=== PATIENT | female | born 1960 | race Caucasian/White ===

== ENCOUNTER 2024-10-18 14:48 | Outpatient (CLI) | payer OTHER, SELFPAY ==
--- NOTE | ~2024-10-18 | MM_ITS ---
EXAMINATION: MM screening samm BI w khanh HISTORY: Screening mammogram, family history of breast cancer in her mother. TECHNIQUE: Craniocaudal and mediolateral oblique 3-D tomosynthesis images were obtained and synthetic 2-D images were generated. CAD analysis was submitted and interpreted. COMPARISON: No prior mammogram is available for comparison at this institution. BREAST PARENCHYMAL COMPOSITION:Not Dense. There are scattered areas of fibroglandular density. FINDINGS: No suspicious mass, calcification, or architectural distortion are identified in either breast to suggest malignancy. There has been no suspicious interval change. IMPRESSION: No mammographic evidence of malignancy. Recommend routine screening mammography in one year. BI-RADS Category 1: Negative Reviewed, dictated and finalized at location .
--- OUTSIDE RECORDS SUMMARY | 2024-10-18 07:39 | XMS_ITS | Encounter Summary ---
Author Organization [facility] Address [address] [place] [address] Care Team Providers Care Branding Machine Tender Name Role Phone Bryon Yuan MD Primary Care Provider [phone] Chavez Ayala MD Unavailable [phone] Reason for Visit * Auth/Cert (Routine) Specialty Diagnoses / Procedures Referred By Contac t Referred To Contact Diagnoses Encounter for screening for malignant neoplasm of colon Encounter for screening for malignant neoplasm of colon [Z12.11] Procedures TX COLONOSCOPY W/BIOPSY SINGLE/MULTIPLE COLONOSCOPY Referral ID Status Reason Start Date Expiration Date Visits Re quested Visits Authorized [id number] 1 1 Encounter Details Date Type Department Care Team (Late st Contact Info) Description 10/18/2024 7:39 AM CDT - 10/18/2024 11:06 AM CDT Hospital Encounter [facility] [address] [place] [address] Dami Low MD [id number] [place] [id number] Encounter for screening for malignant neoplasm of colon Discharge Disposition: Discharge to home or self care Social History Tobacco Use Types Packs/Day Years Used Date Smoking Tobacco: Never Smokeless Tobacco: Never Comments:No street drugs or mj. Alcohol Use Standard Drinks/Week Comments Yes 3 (1 standard drink = 0.6 oz pur e alcohol) Humiliation, Afraid, Rape, and Kick questionnair e Answer Date Recorded Within the last year, have y ou been afraid of your partner or ex-partner? No 04/24/2024 Within the last year, have y ou been humiliated or emotionally abused in other ways by your partner or ex-partner? No Within the last year, have y ou been kicked, hit, slapped, or otherwise physically hurt by your partner or ex-partner? No 04/24/2024 Within the last year, have y ou been raped or forced to have any kind of sexual activity by your partner or ex-partner? No 04/24/2024 PHQ-2 Answer Date Recorded PHQ-2 Total Score (If total score is 3 or more points, staff should administer the PHQ-9) 0 06/08/2024 AUDIT-C Answer Date Recorded Q1: How often do you have a drink containing alc ohol? 2-4 times a month 10/18/2024 Q2: How many drinks containi ng alcohol do you have on a typical day when you are drinking? 5 or 6 10/18/2024 Q3: How often do you have si x or more drinks on one occasion? Weekly 10/18/2024 Personal Safety Answer Date Recorded Have you ever been in or are you currently in a harmful physical or emotional relationship or is someone making you feel afraid or unsafe? 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 Not on file Not on file documented as of this encounter Last Filed Vital Signs Vital Sign Reading Time Taken Comments Blood Pressure 142/85 10/18/2024 10:44 AM CDT Pulse 63 10/18/2024 10:44 AM CDT Temperature 36.6 C (97.9 F) 10/18/2024 10:35 AM CDT Respiratory Rate 22 10/18/2024 10:44 AM CDT Oxygen Saturation 100% 10/18/2024 10:44 AM CDT Inhaled Oxygen Concentration - - Weight 74.8 kg (165 lb) 10/18/2024 8:10 AM CDT Height 170.2 cm (5' 7) 10/18/2024 8:10 AM CDT Body Mass Index 25.84 10/18/2024 8:10 AM CDT documented in this encounter Functional Status * AUDIT-C Score Answer Date of Assessment Author 7 10/18/2024 7:59 AM Esha Kaur RN * Question Answer Date of Assessment Author Q1: How often do you have a drink containing alcohol? 2-4 times a month 10/18/2024 7:59 AM Esha Kaur, REUBEN Q2: How many drinks containing alcohol do you have on a typical day when you are drinking? 5 or 6 10/18/2024 7:59 AM Esha Kaur RN Q3: How often do you have six or more drinks on one occasion? Weekly 10/18/2024 7:59 AM Esha Kaur RN documented as of this encounter Medications at Time of Discharge fluticasone propionate (FLONASE) 50 mcg/actuation nasal spray Administer 2 sprays into affected nostril(s) daily 07/20/2014 loratadine (CLARITIN) 10 mg tablet Take 1 tablet (10 mg total) by mouth daily polyethylene glycol (MIRALAX) 17 gram/dose bulk powderIndication s:Bowel Evacuation Take 17 g by mouth daily Took entire container for colonoscopy documented as of this encounter Discharge Disposition Disposition Code Departure Means Destination Comment s Discharge to home or self care documented in this encounter H&P Notes * Dami Low MD - 10/18/2024 9:44 AM CDT I have reviewed the H&P, examined the patient, and endorse the findings as written. Plan of Care : Based on the above findings, I consider Cara Martinez to be an acceptable risk for :Procedure(s): COLONOSCOPY Source Note - Dami Low MD - 10/13/2024 9:20 AM CDT Gastroenterology History and Physical SUBJECTIVE: Patient is a 64 y.o. female for Colonoscopy INDICATIONS: screening for colon cancer Past Medical History: Diagnosis Date Allergic rhinitis Medications Prior to Admission Medication Sig Dispense Refill Last Dose/Taking fluticasone propionate (FLONASE) 50 mcg/actuation nasal spray Administer 2 sprays into affected nostril(s) daily loratadine (CLARITIN) 10 mg tablet Take 1 tablet (10 mg total) by mouth daily polyethylene glycol (MIRALAX) 17 gram/dose bulk powder Take 17 g by mouth daily Took entire container for colonoscopy No Known Allergies Review of Systems: Respiratory: negative Cardiovascular: negative Gastrointestinal: negative OBJECTIVE: Vitals: 10/13/24 0855 BP: 139/100 Pulse: 93 Resp: 16 Temp: 36.6 ??C (97.8 ??F) SpO2: 100% General Appearance: Alert, cooperative, no distress, appears stated age, well developed, well nourished Lungs: Clear to auscultation bilaterally, respirations unlabored Cardiovascular: Regular rate and rhythm, S1 and S2 normal, no murmur, rub or gallop, no edema, pulses 2+ and symmetric to all extremeties Abdomen: Soft, non-tender, bowel sounds active all four quadrants, no masses, no organomegaly, non-distended Neurologic: Alert & oriented x 3 The procedure risks including, but not limited to perforation infection bleeding and anesthetic complications were discussed and the patient verbalized understanding and agreed to proceed. documented in this encounter Procedure Notes * Dami Low MD - 10/18/2024 9:39 AM CDTAssociated Order(s): COLONOSCOPY [facility] Patient Name: Cara Martinez Procedure Date: 10/18/2024 9:39 AM Date of : 1960 Admit Type: Outpatient Age: 64 Gender: Female Note Status: Finalized Attending MD: Dami Low M.D., Procedure Date: 10/18/2024 Procedure: Colonoscopy Indications: Screening for colorectal malignant neoplasm, Last colonoscopy: September 2024 Providers: Dami Low M.D., Urban Martell TRAILER DRIVER (Anesthesia Staff), Cinthia Nguyen, RN, Omid Hyman, Negative Spotter Referring MD: Bryon Yuan M.D. Medicines: Monitored Anesthesia Care Complications: No immediate complications. Estimated Blood Loss: Estimated blood loss was minimal. Procedure: Pre-Anesthesia Assessment: - Prior to the procedure, a History and Physical was performed, and patient medications and allergies were reviewed. The patient is competent. The risks and benefits of the procedure and the sedation options and risks were discussed with the patient. All questions were answered and informed consent was obtained. Patient identification and proposed procedure were verified by the physician, the nurse and the electromechanisms design drafter in the procedure room. Mental Status Examination: alert and oriented. Airway Examination: normal oropharyngeal airway and neck mobility. Respiratory Examination: clear to auscultation. CV Examination: normal. Prophylactic Antibiotics: The patient does not require prophylactic antibiotics. Prior Anticoagulants: The patient has taken no anticoagulant or antiplatelet agents. ASA Grade Assessment: II - A patient with mild systemic disease. After reviewing the risks and benefits, the patient was deemed in satisfactory condition to undergo the procedure. The anesthesia plan was to use monitored anesthesia care (MAC). Immediately prior to administration of medications, the patient was re-assessed for adequacy to receive sedatives. The heart rate, respiratory rate, oxygen saturations, blood pressure, adequacy of pulmonary ventilation, and response to care were monitored throughout the procedure. The physical status of the patient was re-assessed after the procedure. - The risks and benefits of the procedure and the sedation options and risks were discussed with the patient. All questions were answered and informed consent was obtained. After I obtained informed consent, the scope was passed under direct vision. Throughout the procedure, the patient's blood pressure, pulse, and oxygen saturations were monitored continuously. The scope was passed under direct vision. The Colonoscope was introduced through the anus and advanced to the the cecum, identified by appendiceal orifice and ileocecal valve. The colonoscopy was performed without difficulty. The patient tolerated the procedure well. The quality of the bowel preparation was adequate. The bowel preparation used was GoLYTELY and bisacodyl tablets via extended prep with split dose instruction. Findings: Multiple small-mouthed diverticula were found in the left colon. Diffuse mild inflammation characterized by altered vascularity, congestion (edema) and granularity was found in the descending colon, in the transverse colon, in the ascending colon and in the cecum. Biopsies were taken with a cold forceps for histology. Estimated blood loss was minimal. Two hyperplastic-appearing polyps were found in the rectum. The polyps were 1 mm in size. These polyps were removed with a cold biopsy forceps. Resection and retrieval were complete. Estimated blood loss was minimal. The exam was otherwise without abnormality on direct and retroflexion views. Impression: - Diverticulosis in the left colon. - Diffuse mild inflammation was found in the descending colon, in the transverse colon, in the ascending colon and in the cecum secondary to colitis. Biopsied. - Two 1 mm polyps in the rectum, removed with a cold biopsy forceps. Resected and retrieved. - The examination was otherwise normal on direct and retroflexion views. Recommendation: - Await pathology results. - Repeat colonoscopy in 5-10 years for surveillance based on pathology results. Procedure Code(s): --- Professional --- 60025, Colonoscopy, flexible; with biopsy, single or multiple Diagnosis Code(s): --- Professional --- Z12.11, Encounter for screening for malignant neoplasm of colon K52.9, Noninfective gastroenteritis and colitis, unspecified D12.8, Benign neoplasm of rectum K57.30, Diverticulosis of large intestine without perforation or abscess without bleeding CPT copyright 2022 [employer]. All rights reserved. The codes documented in this report are preliminary and upon data coder operator review may be revised to meet current compliance requirements. Electronically signed by Dami Low M.D. Dami Low M.D. 10/18/2024 10:26:08 AM Number of Addenda: 0 Note Initiated On: 10/18/2024 9:39 AM documented in this encounter Plan of Treatment Pending Results Name Type Priority Associated Diagnoses Date /Time Surgical pathology Pathology and Cytology Routine Encounter for screening for malignant neoplasm of colon 10/18/2024 10:49 AM CDT Scheduled Orders Name Type Priority Associated Diagnoses Order Schedule Surgical pathology Pathology and Cytology Timed Encounter for screening for malignant neoplasm of colon Release Upon Ordering for 1 Occurrences starting 10/18/2024 documented as of this encounter Procedures Procedure Name Priority Date/Time Associated Diagnosis Comments COLONOSCOPY 10/18/2024 9:39 AM CDT documented in this encounter Results * Colonoscopy (10/18/2024 9:39 AM CDT) Anatomical Region Laterality Modality Other Narrative Procedure Note Dami Low MD - 10/18/2024 9:39 AM CDT [facility] Endoscopy [facility] Patient Name: Cara Martinez Procedure Date: 10/18/2024 9:39 AM Date of : 1960 Admit Type: Outpatient Age: 64 Gender: Female Note Status: Finalized Attending MD: Dami Low M.D., Procedure Date: 10/18/2024 Procedure: Colonoscopy Indications: Screening for colorectal malignant neoplasm, Last colonoscopy: September 2024 Providers: Dami Low M.D., Urban Martell,TRAILER DRIVER (Anesthesia Staff), Cinthia Nguyen, RN, Omid Hyman, Negative Spotter Referring MD: Bryon Yuan M.D. Medicines: Monitored Anesthesia Care Complications: No immediate complications. Estimated Blood Loss: Estimated blood loss was minimal. Procedure: Pre-Anesthesia Assessment: - Prior to the procedure, a History and Physicalwas performed, and patient medications and allergieswere reviewed. The patient is competent. The risks and benefits of the procedure and the sedation optionsand risks were discussed with the patient. Allquestions were answered and informed consent was obtained. Patient identification and proposed procedure were verified by the physician, the nurse and the electromechanisms design drafter in the procedure room. Mental Status Examination: alert and oriented. AirwayExamination: normal oropharyngeal airway and neck mobility. Respiratory Examination: clear to auscultation. CV Examination: normal. Prophylactic Antibiotics: The patient does not require prophylactic antibiotics. Prior Anticoagulants: The patient has taken no anticoagulant or antiplatelet agents. ASA Grade Assessment: II - A patient with mild systemicdisease. After reviewing the risks and benefits, the patient was deemed in satisfactory condition to undergo the procedure. The anesthesia plan was to use monitored anesthesia care (MAC). Immediately prior to administration of medications, the patient was re-assessed for adequacy to receive sedatives. The heart rate, respiratory rate, oxygen saturations, blood pressure, adequacy of pulmonary ventilation,and response to care were monitored throughout the procedure. The physical status of the patient was re-assessed after the procedure. - The risks and benefits of the procedure and the sedation options and risks were discussed with the patient. All questions were answered and informed consent was obtained. After I obtained informed consent, the scope was passed under direct vision. Throughout theprocedure, the patient's blood pressure, pulse, and oxygen saturations were monitored continuously. The scopewas passed under direct vision. The Colonoscope was introduced through the anus and advanced to the the cecum, identified by appendiceal orifice andileocecal valve. The colonoscopy was performed without difficulty. The patient tolerated the procedurewell. The quality of the bowel preparation was adequate.The bowel preparation used was GoLYTELY and bisacodyl tablets via extended prep with split doseinstruction. Findings: Multiple small-mouthed diverticula were found in the left colon. Diffuse mild inflammation characterized by altered vascularity, congestion (edema) and granularity was found in the descending colon,in the transverse colon, in the ascending colon and in the cecum.Biopsies were taken with a cold forceps for histology. Estimated blood losswas minimal. Two hyperplastic-appearing polyps were found in the rectum. Thepolyps were 1 mm in size. These polyps were removed with a cold biopsyforceps. Resection and retrieval were complete. Estimated blood loss wasminimal. The exam was otherwise without abnormality on direct and retroflexion views. Impression: - Diverticulosis in the left colon. - Diffuse mild inflammation was found in the descending colon, in the transverse colon, in the ascending colon and in the cecum secondary tocolitis. Biopsied. - Two 1 mm polyps in the rectum, removed with acold biopsy forceps. Resected and retrieved. - The examination was otherwise normal on directand retroflexion views. Recommendation: - Await pathology results. - Repeat colonoscopy in 5-10 years for surveillance based on pathology results. Procedure Code(s): --- Professional --- 46722, Colonoscopy, flexible; with biopsy, singleor multiple Diagnosis Code(s): --- Professional --- Z12.11, Encounter for screening for malignantneoplasm of colon K52.9, Noninfective gastroenteritis and colitis, unspecified D12.8, Benign neoplasm of rectum K57.30, Diverticulosis of large intestine without perforation or abscess without bleeding CPT copyright 2022 [employer]. All rights reserved. The codes documented in this report are preliminary and upon data coder operator reviewmay be revised to meet current compliance requirements. Electronically signed by Dami Low M.D. Dami Low M.D. 10/18/2024 10:26:08 AM Number of Addenda: 0 Note Initiated On: 10/18/2024 9:39 AM Dami Low MD ENDOSCOPY PROCEDURES Fi nal Result documented in this encounter Visit Diagnoses Diagnosis Encounter for screening for malignant neoplasm of colon- Primary Colitis Other and unspecified noninfectious gastroenteritis and colitis documented in this encounter Admitting Diagnoses Diagnosis Encounter for screening for malignant neoplasm of colon documented in this encounter Administered Medications Inactive Administered Medications - up to 3 most recent administrations Medication Order MAR Action Action Date Dose Rate Site sodium chloride 0.9% flush 0.5-20 mL 0.5-20 mL, intra-catheter, Every 8 hours scheduled (alternate), First dose on Wed10/18/24 at 0830, Pre-Procedure (GI), Flush volume based on line type and size. sodium chloride 0.9% flush 0.5-20 mL 0.5-20 mL, intra-catheter, As needed, line care, Starting on Wed10/18/24 at 0754, Pre-Procedure (GI), Flush volume based on line type and size. Flush before and after each use. sodium chloride 0.9% infusion 30 mL/hr, intravenous, Continuous, Starting on Wed10/18/24 at 0830, Pre-Procedure (GI) documented in this encounter Discontinued Medications Medication Sig Discontinue Reason Start Date End Da te polyethylene glycol (GoLYTELY) 236-22.74-6.74 -5.86 gram solutionIndications:[facility] [place] [facility] Evac[facility] Take as directed Stop Taking at Discharge 10/13/2024 10/18/2024 bisacodyl EC (DULCOLAX EC) 5 mg EC tablet Take as directed Stop Taking at Discharge 10/13/2024 10/18/2024 documented as of this encounter Active and Recently Administered Medications Times are shown in CDT. Scheduled Medication Order 10/16/2024 10/17/2024 10/18/2024 sodium chloride 0.9% flush 0.5-20 mL 0.5-20 mL, intra-catheter, Every 8 hours scheduled (alternate), First dose on Wed10/18/24 at 0830, Pre-Procedure (GI), Flush volume based on line type and size. 0830 (Due) Continuous Medication Order 10/16/2024 10/17/2024 10/18/2024 sodium chloride 0.9% infusion 30 mL/hr, intravenous, Continuous, Starting on Wed10/18/24 at 0830, Pre-Procedure (GI) 0830 (Due) PRN Medication Order 10/16/2024 10/17/2024 10/18/2024 sodium chloride 0.9% flush 0.5-20 mL 0.5-20 mL, intra-catheter, As needed, line care, Starting on Wed10/18/24 at 0754, Pre-Procedure (GI), Flush volume based on line type and size. Flush before and after each use. documented in this encounter Orders Medications Ordered That Ricky ht Not Have Been Administered Count Last Ordered Date First Ordered Date sodium chloride 0.9% flush 0.5-20 mL 2 09/30 sodium chloride 0.9% infusion 1 10/18/2024 Discharge Count Last Ordered Date First Orde red Date DISCHARGE PATIENT 1 10/18/2024 documented in this encounter Care Teams Branding Machine Tender Relationship Specialty Start Date End Date Bryon Yuan MD [address] [place] [address] PCP - General Family Medicine 05/06/22 Chavez Ayala MD [address] [place] [address] Referring Physician Obstetrics and Gynecology 05/06/22 documented as of this encounter
--- OUTSIDE RECORDS SUMMARY | 2024-10-18 09:30 | XMS_ITS | Encounter Summary ---
Author Organization [facility] Healthcare Address [address] [place] [address] Care Team Providers Care Brim Cutter Name Role Phone Bryon Yuan MD Primary Care Provider [phone] Chavez Ayala MD Unavailable [phone] Reason for Visit * Auth/Cert (Routine) Specialty Diagnoses / Procedures Referred By Contac t Referred To Contact Diagnoses Encounter for screening for malignant neoplasm of colon Encounter for screening for malignant neoplasm of colon [Z12.11] Procedures IA COLONOSCOPY W/BIOPSY SINGLE/MULTIPLE COLONOSCOPY Referral ID Status Reason Start Date Expiration Date Visits Re quested Visits Authorized [id number] 1 1 Encounter Details Date Type Department Care Team (Late st Contact Info) Description 10/18/2024 9:30 AM CDT - 10/18/2024 10:[address] [facility] GI Lab [address] [place] [address] D[place] [id number] [place] [id number] COLON BIOPSY Social History Tobacco Use Types Packs/Day Years [...] Sign Reading Time Taken Comments Blood Pressure 142/99 10/18/2024 8:10 AM CDT Pulse 75 10/18/2024 8:10 AM CDT Temperature 36.6 C (97.9 F) 10/18/2024 8:10 AM CDT Respiratory Rate 17 10/18/2024 8:10 AM CDT Oxygen Saturation 99% 10/18/2024 8:10 AM CDT Inhaled Oxygen Concentration - - [...] times a month 10/18/2024 7:59 AM Esha Kaur RN Q2: How many drinks containing alcohol do [...] - 10/18/2024 9:39 AM CDTAssociated Order(s): COLONOSCOPY [facility] Endoscopy Lab Patient Name: Cara Martinez Procedure Date: 10/18/2024 9:39 AM Date of : 1960 Admit Type: Outpatient Age: 64 Gender: Female Note Status: Finalized Attending MD: Dami Low M.D., Procedure Date: 10/18/2024 Procedure: Colonoscopy Indications: Screening for colorectal malignant neoplasm, Last colonoscopy: September 2024 Providers: Dami Low M.D., Urban Martell, MOLDER WAX BALL (Anesthesia Staff), Cinthia Nguyen, RN, Omid Hyman, Forest Patrolman Referring MD: Bryon Yuan M.D. Medicines: Monitored [...] by the physician, the nurse and the perinatal social worker in the procedure room. Mental Status Examination: [...] pathology results. Procedure Code(s): --- Professional --- 68333, Colonoscopy, flexible; with biopsy, single or multiple Diagnosis Code(s): --- Professional --- Z12.11, Encounter for screening for malignant neoplasm of colon K52.9, Noninfective gastroenteritis and colitis, unspecified D12.8, Benign neoplasm of rectum K57.30, Diverticulosis of large intestine without perforation or abscess without bleeding CPT copyright 2022 [employer]. All rights reserved. The codes documented in this report are preliminary and upon forming process worker review may be revised to meet current [...] Low MD - 10/18/2024 9:39 AM CDT [facility] Endoscopy Lab Patient Name: Cara Martinez Procedure Date: 10/18/2024 9:39 AM Date of : 1960 Admit Type: Outpatient Age: 64 Gender: Female Note Status: Finalized Attending MD: Dami Low M.D., Procedure Date: 10/18/2024 Procedure: Colonoscopy Indications: Screening for colorectal malignant neoplasm, Last colonoscopy: September 2024 Providers: Dami Low M.D., Urban Martell,MOLDER WAX BALL (Anesthesia Staff), Cinthia Nguyen, RN, Omid Hyman, Forest Patrolman Referring MD: Bryon Yuan M.D. Medicines: Monitored [...] by the physician, the nurse and the perinatal social worker in the procedure room. Mental Status Examination: [...] pathology results. Procedure Code(s): --- Professional --- 41919, Colonoscopy, flexible; with biopsy, singleor multiple Diagnosis Code(s): --- Professional --- Z12.11, Encounter for screening for malignantneoplasm of colon K52.9, Noninfective gastroenteritis and colitis, unspecified D12.8, Benign neoplasm of rectum K57.30, Diverticulosis of large intestine without perforation or abscess without bleeding CPT copyright 2022 [employer]. All rights reserved. The codes documented in this report are preliminary and upon forming process worker reviewmay be revised to meet current compliance requirements. Electronically signed by Dami Low M.D. Dami Low M.D. 10/18/2024 10:26:08 AM Number of Addenda: 0 Note Initiated On: 10/18/2024 9:39 AM Dami Low MD ENDOSCOPY PROCEDURES Fi nal Result documented in this encounter Visit Diagnoses Diagnosis Encounter for screening for malignant neoplasm of colon- Primary Encounter for screening for malignant neoplasm of colon documented in this encounter Admitting Diagnoses Diagnosis [...] te polyethylene glycol (GoLYTELY) 236-22.74-6.74 -5.86 gram solutionIndications:[place] Evacuation Take as directed Stop Taking [...] 10/18/2024 documented in this encounter Care Teams Brim Cutter Relationship Specialty Start Date End Date Bryon Yuan MD [address] [place] [address] PCP - General Family Medicine 05/06/22 Chavez Ayala MD [address] [place] [address] Referring Physician Obstetrics and Gynecology 05/06/22 documented as of this encounter
--- OUTSIDE RECORDS SUMMARY | 2024-10-18 09:43 | XMS_ITS | Encounter Summary ---
Author Organization [facility] Address [address] [place] [address] Care Team Providers Care Wet Trimmer Name Role Phone Bryon Yuan MD Primary Care Provider [phone] Chavez Ayala MD Unavailable [phone] Reason for Visit * Auth/Cert (Routine) Specialty Diagnoses / Procedures Referred By Contac t Referred To Contact Diagnoses Encounter for screening for malignant neoplasm of colon Encounter for screening for malignant neoplasm of colon [Z12.11] Procedures MD COLONOSCOPY W/BIOPSY SINGLE/MULTIPLE COLONOSCOPY Referral ID Status Reason Start Date Expiration Date Visits Re quested Visits Authorized [id number] 1 1 Encounter Details Date Type Department Care Team (Late st Contact Info) Description 10/18/2024 9:43 AM CDT Anesthesia Event [facility] GI Lab [address] [place] [address] Kristian Robertson [place] [id number] [place], [place] [id number] Anesthesia Record Procedure Summary Procedure Name Responsible Anesthesiologist Anesthesia Start Time Anesthesia Stop Time COLON BIOPSY (Colon) Kristian Robertson MD 10/18/24 0943 10/18/24 1013 Events Date Time Event Comment 10/18/2024 0924 0940 In Room 0943 An Start 0943 An Start Data 0943 Start Supplemental O2 0946 An Induction The patient was reevaluated immediately before moderate or deep sedation use and before anesthesia induction. 0948 Anesthesia Ready 1011 Proc Fin 1012 Handoff to RN I completed my handoff to the receiving nurse during which we: 1. Patient identified 2. Responsible provider identified 3. Pertinent medical history reviewed 4. Procedure type and surgical course discussed 5. Intraoperative anesthetic management and any significant issues discussed 6. Expectations and concerns for postop period discussed 7. Questions solicited from receiving nurse 8. Patient disposition at the time of handoff: PACU 1013 An Stop 1014 Out of Room Meds Name Total propofol 220 mg lidocaine 2 % 50 mg * Agents Name O2 * Blood No blood administrations on file. Lines, Drains, and Airways Type Details Placement Removal Peripheral IV Placement Date: 09/30 ; Placement Time: 812; Catheter Size: 22 G; Orientation: Posterior, Right; Location: Hand; Site Prep: Chlorhexidine; Insertion Attempts: 1; Patient Tolerance: Tolerated well; Removal Date: 10/18/24; Removal Time: 1044; Removal Reason: Discharge 10/18/24812 by Esha Hayden RN 10/18/241044 by Lucio Marcial RN documented in this encounter Social History Tobacco Use Types Packs/Day Years [...] on file documented as of this encounter Functional Status * AUDIT-C Score [...] Kaur RN documented as of this encounter OR Notes * Anesthesia Postprocedure Evaluation - Kristian Robertson MD - 10/18/2024 11:05 AM CDT Patient: Cara Martinez Procedure Summary Date: 10/18/24 Room / Location: ENDOSCOPY ROOM 3 / ENDOSCOPY Anesthesia Start: 942 Anesthesia Stop: 1012 Procedure: COLON BIOPSY (Colon) Diagnosis: Encounter for screening for malignant neoplasm of colon (Encounter for screening for malignant neoplasm of colon [Z12.11]) Providers: Dami Low MD Responsible Provider: Kristian Robertson MD Anesthesia Type: MAC ASA Status: 1 Anesthesia Type: MAC Last vitals Vitals Value Taken Time BP 142/85 10/18/24 10:44 Temp 36.6 ??C (97.9 ??F) 10/18/24 10:35 Pulse 63 10/18/24 10:44 Resp 22 10/18/24 10:44 SpO2 100 % 10/18/24 10:44 Anesthesia Post Evaluation Patient location during evaluation: PACU Patient participation: complete - patient participated Level of consciousness: fully awake Pain score: 0 Pain management: adequate Airway patency: adequate Evidence of recall: no Cardiovascular status: acceptable Respiratory status: acceptable Hydration status: acceptable Pt is: normothermic Nausea/Vomiting status: none No notable events documented. * Anesthesia Preprocedure Evaluation - Kristian Robertson MD - 10/18/2024 9:07 AM CDT Images from the original note were not included. Anesthesia Evaluation Cara Martinez is a 64 y.o. female COLONOSCOPY (Colon) Pre-Op Diagnosis Codes: * Encounter for screening for malignant neoplasm of colon [Z12.11] HISTORY Past Medical History Information obtained from: patient and chart. Neurological Neuro/Psych system: negative Cardiovascular Cardiac system: negative Respiratory Respiratory system: negative Gastrointestinal + Hiatal hernia Renal / Renal/ system: negative Musculoskeletal/Pain Musculoskeletal/Pain system: negative Endocrine / Other Endocrine/Other system: negative Functional Capacity Functional capacity: 4-6 METs Patient Active Problem List Diagnosis Date Noted Rectocele 05/17/2024 Well woman exam 05/17/2024 Incomplete bladder emptying 05/17/2024 Other hyperlipidemia 06/03/2023 Encounter for screening for malignant neoplasm of colon 03/11/2023 Encounter for medical examination to establish care 05/06/2022 Allergic rhinitis due to allergen 07/20/2014 Gastric polyp 04/26/2013 Hiatal hernia 04/26/2013 Internal hemorrhoid 04/26/2013 Rectal polyp 04/26/2013 Chronic sinusitis 07/11/2010 Past Medical History: Diagnosis Date Allergic rhinitis Past Surgical History: Procedure Laterality Date COLONOSCOPY 05/20/2023 last colonoscopy 2013, repeat screening COLONOSCOPY 10/13/2024 COLONOSCOPY 10/18/2024 previous colonoscopy 2024, inadequate bowel prep ENDOMETRIAL ABLATION 2012 OB History 1 Para 1 Term 1 AB Living SAB IAB Ectopic Multiple Live Births No Known Allergies Med List Status: Nurse Complete Set By: Esah Hayden RN at 10/18/2024 7:57 AM Taking? Last Dose Start Date End Date Provider bisacodyl EC (DULCOLAX EC) 5 mg EC tablet 10/17/2024 10/13/24 -- Dami Low MD Take as directed fluticasone propionate (FLONASE) 50 mcg/actuation nasal spray 10/17/2024 07/20/14 -- Jessie Arriaza MD loratadine (CLARITIN) 10 mg tablet Past Week -- -- Jessie Arriaza MD polyethylene glycol (GoLYTELY) 236-22.74-6.74 -5.86 gram solution 10/17/2024 10/13/24 -- Dami Low MD Take as directed Flag for Review Taking? Last Dose Start Date End Date Provider polyethylene glycol (MIRALAX) 17 gram/dose bulk powder -- -- -- Jessie Arriaza MD Current Facility-Administered Medications: sodium chloride 0.9% flush 0.5-20 mL, 0.5-20 mL, intra-catheter, Q8H RICH (ALT) sodium chloride 0.9% flush 0.5-20 mL, 0.5-20 mL, intra-catheter, PRN sodium chloride 0.9% infusion, 30 mL/hr, intravenous, Continuous Social History Tobacco Use Smoking Status Never Smokeless Tobacco Never Tobacco Comments No street drugs or mj. Alcohol Use: Alcohol Misuse (10/18/2024) AUDIT-C Frequency of Alcohol Consumption: 2-4 times a month Average Number of Drinks: 5 or 6 Frequency of Binge Drinking: Weekly Substance and Sexual Activity Drug Use Yes Types: Alcohol Family History Problem Relation Age of Onset Breast cancer Mother 70 just dx 2nd time 2022 Dementia Father passed / covid No Known Problems Brother Breast cancer Maternal Grandmother older Heart attack Maternal Grandfather 70 Dementia Paternal Grandmother No Known Problems Paternal Grandfather Cancer Neg Hx no colon cancer, no uterine or ovarian cancer sng 04/24/24 Vitals: 10/18/24 0810 BP: 142/99 Pulse: 75 Resp: 17 Temp: 36.6 ??C (97.9 ??F) SpO2: 99% PT: No results found for requested labs within last 30 days. INR: No results found for requested labs within last 30 days. APTT: No results found for requested labs within last 30 days. Hgb A1C: No results found for requested labs within last 30 days. CBC RBC: No results found for requested labs within last 30 days. RDW: No results found for requested labs within last 30 days. MCHC: No results found for requested labs within last 30 days. MCH: No results found for requested labs within last 30 days. MCV: No results found for requested labs within last 30 days. Hct: No results found for requested labs within last 30 days. Hgb: No results found for requested labs within last 30 days. WBC: No results found for requested labs within last 30 days. MPV: No results found for requested labs within last 30 days. Platelets: No results found for requested labs within last 30 days. RDW CV: No results found for requested labs within last 30 days. RDW Sd: No results found for requested labs within last 30 days. BMP Glucose: No results found for requested labs within last 30 days. Calcium: No results found for requested labs within last 30 days. Sodium: No results found for requested labs within last 30 days. Potassium: No results found for requested labs within last 30 days. CO2: No results found for requested labs within last 30 days. Chloride: No results found for requested labs within last 30 days. BUN: No results found for requested labs within last 30 days. Creatinine: No results found for requested labs within last 30 days. DOS Physical Exam , Date of Last Solid: 10/15/24, Time of Last Solid: 2200 Medical history, medications, and allergies reviewed. Attestation: I endorse the findings of the anesthesia pre-evaluation assessment dated: 10/18/2024. Airway Exam: Mallampati: I Cardiovascular Exam: Rate: regular Rhythm: regular Pulmonary Exam: LCTA, bilat EENT Exam: trachea midline Dental Exam: Appears intact Skin Exam: Skin is warm. Current state: Patient's current state is cooperative and interactive. Anesthesia Plan ASA 1 Planned anesthesia: MAC Induction: Induction: intravenous. Postoperative Plan: No plan for postoperative opioid use. No postoperative mechanical ventilation intended. Patient's planned disposition post procedure is Outpatient. No trial extubation planned. Informed Consent: Discussed plan with SEPARATIONS SCIENTIST and AA. Anesthesia plan and risks discussed with patient. Consent and Attending signature: I and/or my designee have discussed the anesthesia plan, benefits, possible alternatives, parental presence at time of induction (if indicated), and clinically relevant risks that may include dental injury, unintentional awareness, and/or other complications. The patient and/or parent/legal guardian understand, and agree to proceed. All questions answered. documented in this encounter Plan of Treatment Not on file documented as of this encounter Visit Diagnoses Not on filedocumented in this encounter Administered Medications Inactive Administered Medications - up to 3 most recent administrations Medication Order MAR Action Action Date Dose Rate Site lidocaine (PF) (XYLOCAINE) 20 mg/mL (2 %) preservative free injection intravenous, As needed, Starting on Wed10/18/24 at 0942, Anesthesia Intra-op Given 10/18/2024 9:42 AM CDT 50 mg propofoL (DIPRIVAN) 10 mg/mL IV intravenous, As needed, Starting on Wed10/18/24 at 0945, Anesthesia Intra-op Given 10/18/2024 9:59 AM CDT 40 mg Given 10/18/2024 9:54 AM CDT 40 mg Given 10/18/2024 9:49 AM CDT 40 mg documented in this encounter Care Teams Wet Trimmer Relationship Specialty Start Date End Date Bryon Yuan MD [address] [place] [address] PCP - General Family Medicine 05/06/22 Chavez Ayala MD [address] [place] [address] Referring Physician Obstetrics and Gynecology 05/06/22 documented as of this encounter
--- OUTSIDE RECORDS SUMMARY | 2024-10-18 15:25 | XMS_ITS | Encounter Summary ---
Author Organization [facility] Address [address] [place] [address] Care Team Providers Care Lining Feller Blindstitch Name Role Phone Chiquita Rome MD Primary Care Provider Encounter Details Date Type Department Care Team (Late st Contact Info) Description 06/16/[address]patient [address] [facility] Blanca Campuzano MD [facility] [place] [address] Social History Tobacco Use Types Packs/Day Years Used Date Smoking Tobacco: Never Assessed Comments Unknown Sex and Gender Information Value Date Recorded Sex Assigned at Not on file Legal Sex Female 5:18 AM DIRECTOR OF MANAGED SERVICES Gender Identity Not on file Sexual Orientation Not on file documented as of this encounter Plan of Treatment Not on file documented as of this encounter Visit Diagnoses Not on filedocumented in this encounter Care Teams Lining Feller Blindstitch Relationship Specialty Start Date End Date Chiquita Rome MD PCP - General Family Practice 06/19/10 documented as of this encounter
--- OUTSIDE RECORDS SUMMARY | 2024-10-18 15:25 | XMS_ITS | Encounter Summary ---
Author Organization [facility] Address 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
--- OUTSIDE RECORDS SUMMARY | 2024-10-18 15:25 | XMS_ITS | Clinical Summary ---
Author Organization [address] Address [address] [place] [address] Care Team Providers Care Cementer Machine Joiner Name Role Phone Bryon Yuan MD Primary Care Provider [phone] Chavez Ayala MD Unavailable Allergies No known active allergies Medications loratadine (CLARITIN) 10 mg tablet Take 1 tablet (10 mg total) by mouth daily Active fluticasone propionate (FLONASE) 50 mcg/actuation nasal spray Administer 2 sprays into affected nostril(s) daily 5 Active polyethylene glycol (MIRALAX) 17 gram/dose bulk powderIndicati ons:Bowel Evacuation Take 17 g by mouth daily Took entire container for colonoscopy Active sod picosulf-mag ox-citric ac (Clenpiq) 10 mg-3.5 gram- 12 gram/175 mL solution Take as directed 350 mL 5 10/14/19 25 Discontin ued(Alter magdalena therapy) polyethylene glycol (GoLYTELY) 236-22.74-6.74 -5.86 gram solutionIndica tions:Bowel Evacuation Take as directed 8000 mL 5 10/19/19 25 Discontin ued(Stop Taking at Discharge ) bisacodyl EC (DULCOLAX EC) 5 mg EC tablet Take as directed 8 tablet 5 10/19/19 25 Discontin ued(Stop Taking at Discharge ) Active Problems Problem Noted Date Diagnosed Date Colitis 10/18/2024 Rectocele 05/17/2024 Assessment & Plan (05/17/2024 6:01 PM CDT): Options discussed. We discussed the need to control constipation. She will decide if she would like referral to urogyn Well woman exam 05/17/2024 Assessment & Plan (05/17/2024 6:03 PM CDT): Pap done. RTO 12m. I will send the results to the portal. If she has not heard in a week, to call the office. She is due for samm We did not discuss colonscopy Incomplete bladder emptying 05/17/2024 Assessment & Plan (05/17/2024 6:04 PM CDT): To ua, micro and c&S She may need pvr in the future Other hyperlipidemia 06/03/2023 Assessment & Plan (06/08/2024 12:57 PM CDT): Patient lipid panel was elevated during the last visit. Patient will get labs today. Patient is not interested in starting medications Assessment & Plan (06/03/2023 1:36 PM CDT): Patient's cholesterol panel slightly worsened. Total cholesterol: 289 HDL: 89 Triglycerides: 75 LDL 182. Discussed ASCVD risk score of 6.55%. Recommended starting statin medication, LDL not improving. Patient declines at this time. Also discussed possibility of CT calcium scoring, she will consider. Otc remedies discussed and continue with diet/exercise. Encounter for screening for malignant neoplasm o f colon 03/11/2023 Encounter for medical examination to establish c are 05/06/2022 Assessment & Plan (05/06/2022 1:25 PM METALWORKER): A(n) initial well visit to establish care has been performed today. Cara Martinez is not up to date on screening tests. She is in need of Breast cancer screening, Colon cancer screening and Cholesterol screening. She is not up to date on needed preventative vaccinations; She is in need of Tdap/Td and Zoster. We discussed healthy lifestyle habits, educational material has been given. Medications reviewed, changes documented as per the medical record and discussed with patient along with risks vs benefits. Return in 1 year Allergic rhinitis due to allergen 07/20/2014 Assessment & Plan (06/08/2024 1:00 PM CDT): Patient is taking loratadine and has no complaints. Patient will continue current dosage. Gastric polyp 04/26/2013 Hiatal hernia 04/26/2013 Internal hemorrhoid 04/26/2013 Rectal polyp 04/26/2013 Chronic sinusitis 07/11/2010 Resolved Problems Problem Noted Date Diagnosed Date Resolved Date Menorrhagia 08/01/2008 05/17/2024 Encounters Date Type Department Care Team Description 10/18/2024 9:43 AM CDT Anesthesia Event GI Lab [id number] [place] [address] Kristian Robertson MD 10/18/2024 9:30 AM CDT - 10/18/2024 10:00 AM CDT Surgery GI Lab [id number] [place] [address] Dami Low MD COLON BIOPSY 10/18/2024 7:39 AM CDT - 10/18/2024 11:06 AM CDT Hospital Encounter GI Lab [id number] [place] [address] Dami Low MD Encounter for screening for malignant neoplasm of colon Discharge Disposition: Discharge to home or self care 10/13/2024 9:14 AM CDT Anesthesia Event GI Lab [id number] [place] [address] Rosie Moss DO Ifune, Catherine K., MD PhD 10/13/2024 9:00 AM CDT - 10/13/2024 9:30 AM CDT Surgery GI Lab [id number] [place] [address] Dami Low MD COLONOSCOPY 10/13/2024 8:13 AM CDT - 10/13/2024 10:35 AM CDT Hospital Encounter GI Lab [id number] [place] [address] Dami Low MD Discharge Disposition: Discharge to home or self care 10/13/2024 Telephone [facility] at [address] [address] Dami Low MD Repeat Colonoscopy from Last 3 Months Immunizations Immunization Administration Dates Next Due Influenza, Quadrivalent, Candace l Culture-based MDCK, Preservative Free, Antibiotic Free, Intramuscular 01/06/2023,01/05/2022 Influenza, Quadrivalent, Spl it, Intramuscular 01/13/2019 Influenza, Quadrivalent, Spl it, Preservative Free, Intramuscular 01/13/2019,12/21/2017 Influenza, Trivalent, IM (MDV) ,11/29/2017,01/16/2015,01/08 Influenza, Trivalent, Preser vative Free, Intramuscular 12/22/2016,01/16/2015,03/17/2013 Tdap 07/11/2010 Surgical History Surgery Date Site/Laterality Comments ENDOMETRIAL ABLATION 03/01/2012 - 02/28/2013 COLONOSCOPY 05/20/2023 last colonoscopy 2013, repeat screening COLONOSCOPY 10/13/2024 COLONOSCOPY 10/18/2024 previous colonoscopy 2024, inadequate bowel prep Medical History Medical History Date Comments Allergic rhinitis Family History Medical History Relation Name Comments No Known Problems Brother Dementia Father passed / covi d Heart attack Maternal Grandfather Breast cancer Maternal Grandmother older Breast cancer Mother just dx 2nd ti me 2022 No Known Problems Paternal Grandfather Dementia Paternal Grandmother Cancer Neg Hx no colon cancer , no uterine or ovarian cancer sng 04/24/24 Relation Name Status Comments Brother Alive Father Maternal Grandfather Maternal Grandmother Mother Alive Paternal Grandfather Paternal Grandmother Social History Tobacco Use Types Packs/Day Years [...] file Not on file Not on file Obstetrics History Para Term AB IAB SAB Ectopic Multiple Livin g Live Births 1 1 1 Date Outcome GA Total Labor Labor/2nd/3rd Weight Sex Type Anes PTL Annie A1 A5 Name Clin Term Vag-Spo nt Last Filed Vital Signs Vital Sign Reading [...] Mass Index 25.84 10/18/2024 8:10 AM CDT Plan of Treatment Health Maintenance Due Date Last Done Comments Hepatitis B Screening 1980 Zoster Vaccine (1 of 2) 2012 DTaP/Tdap/Td Vaccine (2 - Td or Tdap) 07/11/2020 07/11/2010 Covid-19 Vaccine ( season) 2023 12/09/2022, 12/08/2021, 02/04/2021, Additional history exists Breast Cancer Screening-Mammogram 04/20/2024 04/20/2023, 04/20/2023, 01/08/2022, Additional history exists Influenza Vaccine (#1) 2024 , 01/05/2022, 01/01/2020, Additional history exists Cervical Cancer Screening 04/24/2025 04/24/2024 Depression Screening 06/08/2025 06/08/2024, 04/24/2024, 06/03/2023 Regular Well Visit/Exam 18-64 06/08/2025 06/08/2024, 04/24/2024, 06/03/2023, Additional history exists Colon Cancer Screening-Colonoscopy 10/18/2034 10/18/2024, 10/13/2024, 05/20/2023 Hepatitis C Screening Completed 05/26/2023 Pneumococcal vaccine <65 Aged Out No longer eligible based on patient's age to complete this topic Procedures Procedure Name Priority Date/Time Associated Diagnosis Comments COLONOSCOPY 10/18/2024 9:39 AM CDT COLONOSCOPY 10/13/2024 9:14 AM CDT Encounter for screening for malignant neoplasm of colon COLONOSCOPY 10/13/2024 9:06 AM CDT PAP AND HPV, REFLEX TO HPV GENOTYPES Routine 04/24/2024 4:09 PM METALWORKER Well woman exam HEPATITIS C ANTIBODY Routine 05/26/2023 2:16 PM CDT Encounter for hepatitis C screening test for low risk patient from Last 3 Months or Most Recently Relevant to Health Maintenance Results * Colonoscopy (10/18/2024 9:39 AM CDT) Anatomical Region Laterality Modality Other Narrative Procedure Note Dami Low MD - 10/18/2024 9:39 AM CDT [facility] Endoscopy Lab Patient Name: Cara Martinez Procedure Date: 10/18/2024 9:39 AM Date of : 1960 Admit Type: Outpatient Age: 64 Gender: Female Note Status: Finalized Attending MD: Dami Low M.D., Procedure Date: 10/18/2024 Procedure: Colonoscopy Indications: Screening for colorectal malignant neoplasm, Last colonoscopy: September 2024 Providers: Dami Low M.D., Urban Martell,ELECTROLESS PLATER (Anesthesia Staff), Cinthia Nguyen RN, Omid Hyman, Leg Man Referring MD: Bryon Yuan M.D. Medicines: Monitored [...] by the physician, the nurse and the elementary school teacher in the procedure room. Mental Status Examination: [...] pathology results. Procedure Code(s): --- Professional --- 37761, Colonoscopy, flexible; with biopsy, singleor multiple Diagnosis Code(s): --- Professional --- Z12.11, Encounter for screening for malignantneoplasm of colon K52.9, Noninfective gastroenteritis and colitis, unspecified D12.8, Benign neoplasm of rectum K57.30, Diverticulosis of large intestine without perforation or abscess without bleeding CPT copyright 2022 [employer]. All rights reserved. The codes documented in this report are preliminary and upon location analyst reviewmay be revised to meet current compliance requirements. Electronically signed by Dami Low M.D. Dami Low M.D. 10/18/2024 10:26:08 AM Number of Addenda: 0 Note Initiated On: 10/18/2024 9:39 AM us Dami Low MD ENDOSCOPY PROCEDURES Fi nal Result * Colonoscopy (10/13/2024 9:06 AM CDT) Anatomical Region Laterality Modality Other Narrative Procedure Note Dami Low MD - 10/13/2024 9:06 AM CDT - Endoscopy Lab Patient Name: Cara Martinez Procedure Date: 10/13/2024 9:06 AM Date of : 1960 Admit Type: Outpatient Age: 64 Gender: Female Note Status: Finalized Attending MD: Dami Low M.D., Procedure Date: 10/13/2024 Procedure: Colonoscopy Indications: Screening for colorectal malignant neoplasm, Last colonoscopy: April 2023 Providers: aDmi Low M.D., PEARL Campos (Anesthesia Staff), Chelo Mon RN, Cinthia Nguyen RN, Celeste Patel, Leg Man, Davidson, Leg Man Referring MD: Bryon Yuan M.D. Medicines: Monitored Anesthesia Care Complications: No immediate complications. Estimated Blood Loss: Estimated blood loss: none. Procedure: Pre-Anesthesia Assessment: - Prior to the procedure, a History and Physicalwas performed, and patient medications and allergieswere reviewed. The patient is competent. The risks and benefits of the procedure and the sedation optionsand risks were discussed with the patient. Allquestions were answered and informed consent was obtained. Patient identification and proposed procedure were verified by the physician, the nurse and the elementary school teacher in the procedure room. Mental Status Examination: [...] the anus and advanced to the the sigmoid colon. The colonoscopy was performedwithout difficulty. The patient tolerated the procedurewell. The quality of the bowel preparation was unsatisfactory. The bowel preparation used wasMiralax via extended prep with split dose instruction. Findings: Multiple large-mouthed, medium-mouthed and small-mouthed diverticula were found in the sigmoid colon. A large amount of solid stool was found in the sigmoid colon,precluding visualization. Impression: - Preparation of the colon was unsatisfactory. - Diverticulosis in the sigmoid colon. - Stool in the sigmoid colon. - No specimens collected. Recommendation: - Repeat colonoscopy at the next availableappointment because the bowel preparation was poor. (2 day GoLYTELY prep with Dulcolax) Procedure Code(s): --- Professional --- 54431, 53, Colonoscopy, flexible; diagnostic, including collection of specimen(s) by brushing or washing, when performed (separate procedure) Diagnosis Code(s): --- Professional --- Z12.11, Encounter for screening for malignantneoplasm of colon K57.30, Diverticulosis of large intestine without perforation or abscess without bleeding CPT copyright 2022 [employer]. All rights reserved. The codes documented in this report are preliminary and upon location analyst reviewmay be revised to meet current compliance requirements. Electronically signed by Dami Low M.D. Dami Low M.D. 10/13/2024 9:40:13 AM Number of Addenda: 0 Note Initiated On: 10/13/2024 9:06 AM Dami Low MD ENDOSCOPY PROCEDURES Fi nal Result * Pap and HPV, reflex to HPV Genotypes (04/24/2024 4:09 PM METALWORKER) Clinical indication Comment [facility] - 01 Comment:NEGATIVE FOR INTRAEP ITHELIAL LESION OR MALIGNANCY. Specimen adequacy: Comment [facility] - 01 Comment: Satisfactory for evaluation. Endocervical and/or squamous metaplastic cells (endocervical component) are present. Clinician provided ICD10 Comment [facility] - 01 Comment:Z01.419 Performed by Comment [facility] - 01 Comment:Preethi Ortega, totechnologist . . [facility] - 01 Note: Comment [facility] - 01 Comment: The Pap smear is a screening test designed to aid in the detection of premalignant and malignant conditions of the uterine cervix. It is not a diagnostic procedure and should not be used as the sole means of detecting cervical cancer. Both false-positive and false-negative reports do occur. Test methodology Comment [facility] - 01 Comment: This liquid based ThinPrep(R) pap test was screened with the use of an image guided system. HPV Aptima Negative Negative [facility] 02 Comment: This nucleic acid amplification test detects fourteen high-risk HPV types (16,18,31,33,35,39,45,51,52,56,58,59,66,68) without differentiation. HPV Genotype Reflex Comment [facility] - 01 Comment:Criteria not met, HP V Genotype not performed. Thin prep-Endocervical 04/24/2024 4:09 PM METALWORKER 04/25/2024 Narrative [facility] - 04/27/2024 12:10 PM METALWORKER Performed at: 01 - [facility] [address] [place], [place] [id number] Certified Ski Patroller: Milagros Mcmillan MD, Phone: [phone] Performed at: 02 - [facility] [place] [address] [facility] [place], [place] [id number] Certified Ski Patroller: Milagros Mcmillan MD, Phone: [phone] Specimen Comment: [id number] Specimen Comment: No. of containers..01 ThinPrep Vial us Karen Castro MD LAB CYTOLOGY ORDERA BLES Final Result Performing Organization Address City/[facility] Co de Phone Number [facility] - 01 [facility] 02 * Hepatitis C antibody Blood (05/26/2023 2:16 PM CDT) Hep C Ab NON-REACTI VE NON-REACT MARTHA [facility] Comment: HCV antibody was non-reactive. There is no laboratory evidence of HCV infection. In most cases, no further action is required. However, if recent HCV exposure is suspected, a test for HCV RNA (test code 25715) is suggested. For additional information please refer to http://education.Nala/faq/OMN30o5 (This link is being provided for informational/ educational purposes only.) Blood 05/26/2023 2:16 PM CDT 05/26/2023 2:17 PM CDT Narrative [facility] - 05/27/2023 7:57 AM CDT FASTING:YES FASTING: YES us Michelle Arenas NP LAB MICROBIOLOGY - GENERAL ORDER MURPHY Final Result [facility] [address] [id number] from Last 3 Months or Most Recently Relevant to Health Maintenance Insurance [facility] CHOICE PLUS [facility] CHOICE PLUS Advance Directives For more information, please contact: [phone] * Full Code (Latest Code Status on File) Date Activated Date Inactivated Comments 10/18/2024 7:54 AM 10/18/2024 3:06 PM Care Teams Cementer Machine Joiner Relationship Specialty Start Date End Date Bryon Yuan MD [address] [address] PCP - General Family Medicine 05/06/22 Chavez Ayala MD [address] [facility] [address] [place] [address] Referring Physician Obstetrics and Gynecology 05/06/22
--- OUTSIDE RECORDS SUMMARY | 2024-10-18 15:25 | XMS_ITS | Encounter Summary ---
Author Organization [facility] Address [address] [place] [address] Care Team Providers Care Aviation Project Engineer Name Role Phone Chiquita Rome MD Primary Care Provider Encounter Details Date Type Department Care Team (Latest Contact Info) Description 11/11/2005 Outpatient Historical [facility] Maria R Linares MD NO ADDRESS ON FILE Other Malaise and Fatigue (Primary Dx) Social History Tobacco Use Types Packs/Day Years Used Date Smoking Tobacco: Never Assessed Comments Unknown Sex and Gender Information Value Date Recorded Sex Assigned at Not on file Legal Sex Female 5:18 AM MIG TIG WELDER Gender Identity Not on file Sexual Orientation Not on file documented as of this encounter Plan of Treatment Not on file documented as of this encounter Visit Diagnoses Diagnosis Other malaise and fatigue- Primary documented in this encounter Care Teams Aviation Project Engineer Relationship Specialty Start Date End Date Chiquita Rome MD PCP - General Family Practice 06/19/10 documented as of this encounter
--- OUTSIDE RECORDS SUMMARY | 2024-10-18 15:25 | XMS_ITS | Encounter Summary ---
Author Organization [facility] Address [address] [place] [address] Care Team Providers Care Woven Paper Hat Mender Name Role Phone Chiquita Rome MD Primary Care Provider Encounter Details Date Type Department Care Team (Late st Contact Info) Description 12/05/1998 Outpatient Historical [facility] EXPLOSIVES WORKER - Medical [facility] [address] [facility] [address] [address] Kirk Balesh Social History Tobacco Use Types Packs/Day Years Used Date Smoking Tobacco: Never Assessed Comments Unknown Sex and Gender Information Value Date Recorded Sex Assigned at Not on file Legal Sex Female 5:18 AM COLLECTION ANALYST Gender Identity Not on file Sexual Orientation Not on file documented as of this encounter Plan of Treatment Not on file documented as of this encounter Visit Diagnoses Not on filedocumented in this encounter Care Teams Woven Paper Hat Mender Relationship Specialty Start Date End Date Chiquita Rome MD PCP - General Family Practice 06/19/10 documented as of this encounter
--- OUTSIDE RECORDS SUMMARY | 2024-10-18 15:25 | XMS_ITS | Encounter Summary ---
Author Organization [facility] Address [address] [place] [address] Care Team Providers Care Dynamite Packing Machine Operator Name Role Phone Chiquita Rome MD Primary Care Provider [phone] Encounter Details Date Type Department Care Team (Late st Contact Info) Description 01/18/2002 Outpatient Historical [facility] REHAB DIRECTOR - [address] [place] [address] Chavez Ayala MD [address] [place] [address] [place] [address] Social History Tobacco Use Types Packs/Day Years Used Date Smoking Tobacco: Never Assessed Comments Unknown Sex and Gender Information Value Date Recorded Sex Assigned at Not on file Legal Sex Female 5:18 AM TRUCK SPOTTER Gender Identity Not on file Sexual Orientation Not on file documented as of this encounter Plan of Treatment Not on file documented as of this encounter Visit Diagnoses Not on filedocumented in this encounter Care Teams Dynamite Packing Machine Operator Relationship Specialty Start Date End Date Chiquita Rome MD PCP - General Family Practice 06/19/10 documented as of this encounter
--- OUTSIDE RECORDS SUMMARY | 2024-10-18 15:25 | XMS_ITS | Encounter Summary ---
Author Organization [facility] Address [address] [place] [address] Care Team Providers Care Director Industrial Relations Name Role Phone Chiquita Rome MD Primary Care Provider Encounter Details Date Type Department Care Team (Late st Contact Info) Description 12/27/2000 Outpatient Historical [facility] VACCINE MANAGER - Medical [facility] [address] [facility] [address] [address] Kirk Balesh Social History Tobacco Use Types Packs/Day Years Used Date Smoking Tobacco: Never Assessed Comments Unknown Sex and Gender Information Value Date Recorded Sex Assigned at Not on file Legal Sex Female 5:18 AM GREEN BUILDING ARCHITECT Gender Identity Not on file Sexual Orientation Not on file documented as of this encounter Plan of Treatment Not on file documented as of this encounter Visit Diagnoses Not on filedocumented in this encounter Care Teams Director Industrial Relations Relationship Specialty Start Date End Date Chiquita Rome MD PCP - General Family Practice 06/19/10 documented as of this encounter
--- OUTSIDE RECORDS SUMMARY | 2024-10-18 15:25 | XMS_ITS | Clinical Summary ---
Author Organization [facility] [employer] Address [address] [place] [address] Care Team Providers Care Bit Gatherer Name Role Phone Unavailable Primary Care Provider Unavailabl e Source Comments [facility],non-owned Affiliates and Associated Physician Practices is amultiple site organization consisting of ambulatory clinics and hospital sitesin [place], [place], [place] and [place]. This disclosure is being madepursuant to the Care Everywhere program and may not contain all information available regarding this patient. Last updated 17.[facility] [employer] Allergies No known active allergies Medications * Be aware that medications may not be up to date on this document. Alwaysverify current medications with the patient. loratadine (Claritin) 10 MG tablet Take 1 (one) tablet by mouth once daily Active Social History Tobacco Use Types Packs/Day Years Used Date Smoking Tobacco: Never Smokeless Tobacco: Never Tobacco Cessation:Counseling Given: Not Answered Comments Unknown Sex and Gender Information Value Date Recorded Sex Assigned at Not on file Legal Sex Female 6:18 PM FASHION DIRECTOR PARTY PLAN SALES Gender Identity Not on file Sexual Orientation Not on file Plan of Treatment Health Maintenance Due Date Last Done Comments COLOGUARD (AGES 45-75) - COLON CA SCREENING 1960 COLON MONITORING 1960 COLONOSCOPY - COLON CA SCREENING 1962 CT COLONOGRAPHY - COLON CA SCREENING 1960 Colorectal Cancer Screening 1960 FIT - COLON CA SCREENING 1960 FLEX SIG - COLON CA SCREENING 1960 LIPID TESTING 1960 MAMMOGRAM 1960 HIV SCREENING 1977 HEPATITIS C SCREENING 07/20/1980 DTAP/TDAP/TD VACCINES (1 - Tdap) 1981 PAP SMEAR 07/26/1983 PNEUMOCOCCAL VACCINE 50+ (1 of 1 - PCV) 2012 ZOSTER VACCINE (1 of 2) 2012 COVID-19 VACCINE (1 - 2023- season) 2023 DEPRESSION SCREENING 03/01/2024 INFLUENZA VACCINE (#1) 2024 0, 01/13/2019, 12/22/2017, Additional history exists Respiratory Syncytial Virus (RSV) Vaccine Pt: or over 60 yrs (1 - 1-dose 75+ series) 2037 HEPATITIS B VACCINE Aged Out No longe r eligible based on patient's age to complete this topic HIB VACCINE Aged Out No longer eligi ble based on patient's age to complete this topic HPV VACCINE Aged Out No longer eligi ble based on patient's age to complete this topic MENINGOCOCCAL (Group B) VACCINE SHARED DECISION-MAKING Aged Out No longer eligible based on patient's age to complete this topic MENINGOCOCCAL GROUPS A/C/Y/W VACCINE Aged Out No longer eligible based on patient's age to complete this topic Insurance
--- OUTSIDE RECORDS SUMMARY | 2024-10-18 15:25 | XMS_ITS | Encounter Summary ---
Author Organization [facility] Address [address] [place] [address] Care Team Providers Care Mid Teacher Name Role Phone Chiquita Rome MD Primary Care Provider [phone] Encounter Details Date Type Department Care Team (Late st Contact Info) Description 05/05/[address] [facility] Primary Care [address] [place] [phone] Maria R Linares MD NO ADDRESS ON FILE Social History Tobacco Use Types Packs/Day Years Used Date Smoking Tobacco: Never Assessed Comments Unknown Sex and Gender Information Value Date Recorded Sex Assigned at Not on file Legal Sex Female 5:18 AM TREATMENT PLANT OPERATOR Gender Identity Not on file Sexual Orientation Not on file documented as of this encounter Plan of Treatment Not on file documented as of this encounter Visit Diagnoses Not on filedocumented in this encounter Care Teams Mid Teacher Relationship Specialty Start Date End Date Chiquita Rome MD PCP - General Family Practice 06/19/10 documented as of this encounter
--- OUTSIDE RECORDS SUMMARY | 2024-10-18 15:25 | XMS_ITS | Encounter Summary ---
Author Organization [facility] Address 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
--- OUTSIDE RECORDS SUMMARY | 2024-10-18 15:25 | XMS_ITS | Encounter Summary ---
Author Organization [facility] Address 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
--- OUTSIDE RECORDS SUMMARY | 2024-10-18 15:25 | XMS_ITS | Encounter Summary ---
Author Organization [facility] Address 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
--- OUTSIDE RECORDS SUMMARY | 2024-10-18 15:25 | XMS_ITS | Encounter Summary ---
Author Organization [facility] Address [address] 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
--- OUTSIDE RECORDS SUMMARY | 2024-10-18 15:25 | XMS_ITS | Encounter Summary ---
Author Organization [facility] Address 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
--- OUTSIDE RECORDS SUMMARY | 2024-10-18 15:25 | XMS_ITS | Encounter Summary ---
Author Organization [facility] Address [address] [place] [address] Care Team Providers Care Emergency Room Clerk Name Role Phone Chiquita Rome MD Primary Care Provider [phone] Encounter Details Date Type Department Care Team (Late st Contact Info) Description 05/27/1999 Outpatient Historical Division of Neurology [address] [address] Mark Ellison MD [address] [place] [address] Social History Tobacco Use Types Packs/Day Years Used Date Smoking Tobacco: Never Assessed Comments Unknown Sex and Gender Information Value Date Recorded Sex Assigned at Not on file 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
--- OUTSIDE RECORDS SUMMARY | 2024-10-18 15:25 | XMS_ITS | Encounter Summary ---
Author Organization [facility] Address 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
--- OUTSIDE RECORDS SUMMARY | 2024-10-18 15:25 | XMS_ITS | Encounter Summary ---
Author Organization [facility] Address 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
--- OUTSIDE RECORDS SUMMARY | 2024-10-18 15:25 | XMS_ITS | Encounter Summary ---
Author Organization [facility] Address [address] [place] [address] Care Team Providers Care Letter Of Credit Clerk Name Role Phone Chiquita Rome MD Primary Care Provider [phone] Encounter Details Date Type Department Care Team (Late st Contact Info) Description 12/17/2004 Outpatient Historical [facility] NURSING HOME SOCIAL WORKER - [address] [place] [address] Chavez Ayala MD [address] [place] [address] [place] [phone] Social History Tobacco Use Types Packs/Day Years Used Date Smoking Tobacco: Never Assessed Comments Unknown Sex and Gender Information Value Date Recorded Sex Assigned at Not on file 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
--- OUTSIDE RECORDS SUMMARY | 2024-10-18 15:25 | XMS_ITS | Encounter Summary ---
Author Organization [facility] Address 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
--- OUTSIDE RECORDS SUMMARY | 2024-10-18 15:25 | XMS_ITS | Encounter Summary ---
Author Organization [facility] Address 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 Sex Female 5:18 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 Gender Identity Not on file Sexual Orientation Not on file documented as of this encounter Plan of Treatment Not on file documented as of this encounter Procedures Procedure Name Priority Date/Time Associated Diagnosis Comments MAMMO SCREEN BILAT W OR WO CAD Routine 10/19/2007 2:39 PM CDT documented in this encounter Results * MAMMO DIGITAL SCREEN BILAT (10/19/2007 2:39 PM CDT) Anatomical Region Laterality Modality Breast Bilateral Other 10/19/2007 2:39 PM CDT Narrative 10/21/2007 8:30 AM CDT [address] [address] Admit Date: 10/19/2007 EARL REYES Sex: F Admit Prov: JOELLE HOPPER Date: 1960 Primary Care Prov: BRIEN JUNIOR CMRN: [id number] Room: [facility]: [id number] IMAGING SERVICES Ordering Prov: JOELLE HOPPER Accession Number: [id number] Interpretation BILATERAL FULL FIELD DIGITAL SCREENING MAMMOGRAM WITH CAD. Date: 10/19/2007 History: Routine Screening. Technique: Full field digital craniocaudal and mediolateral oblique projections of both breasts were obtained. Computer aided diagnosis was performed. Comparison: 07/2006, 04/2005 Breast Parenchymal Composition: Scattered fibroglandular densities. Findings: No suspicious mass, suspicious microcalcifications, or architectural distortion in either breast is identified. Since the prior study, there has been no significant interval change. The computer aided diagnosis detects no significant abnormality. Overall Assessment: BI-RADS category 1: Negative. Recommendation: Annual mammography is recommended. Assessment BIRADS: 1-Negative Recommendation: Normal interval follow-up Dictated by: KIMMY VYAS Electronically signed by: KIMMY VYAS 10/21/2007 08:29 Transcribed: 10/20/2007 21:54 AMK Procedure Note Kimmy Vyas - 10/25/2007 [id number] [place], [place] [address] Admit Date: 10/19/2007 ELVIEARL COLLINS Santi Sex: F Admit Prov: JOELLE HOPPER Date: 1960 Primary Care Prov: BRIEN JUNIOR CMRN: [id number] [facility] [id number] IM[facility] Ordering Prov: JOELLE HOPPER Interpretation BILATERAL FULL FIELD DIGITAL SCREENING MAMMOGRAM WITH CAD. Date: 10/19/2007 History: Routine Screening. Technique: Full field digital craniocaudal and mediolateral oblique projections of both breasts were obtained. Computer aided diagnosiswas performed. Comparison: 07/2006, 04/2005 Breast Parenchymal Composition: Scattered fibroglandular densities. Findings: No suspicious mass, suspicious microcalcifications, or architectural distortion in either breast is identified. Since theprior study, there has been no significant interval change. The computeraided diagnosis detects no significant abnormality. Overall Assessment: BI-RADS category 1: Negative. Recommendation: Annual mammography is recommended. Assessment BIRADS: 1-Negative Recommendation: Normal interval follow-up Dictated by: KIMMY VYAS Electronically signed by: KIMMY VYAS 10/21/2007 08:29 Transcribed: 10/20/2007 21:54 AMK us Joelle Hopper MD MAMMO ORDERABLES Final Result documented in this encounter Visit Diagnoses Diagnosis Other screening mammogram documented in this encounter Care Teams Environmental Scientists Relationship Specialty Start Date End Date Chiquita Rome MD PCP - General Family Practice 06/19/10 documented as of this encounter
--- OUTSIDE RECORDS SUMMARY | 2024-10-18 15:25 | XMS_ITS | Encounter Summary ---
Author Organization [facility] Address [address] [place] [address] Care Team Providers Care Sheep Sorter Name Role Phone Chiquita Rome MD Primary Care Provider [phone] Encounter Details Date Type Department Care Team (Late st Contact Info) Description 11/11/2005 Outpatient [facility] Primary Care [address] [place] [address] Maria R Linares MD NO ADDRESS ON FILE Social History Tobacco Use Types Packs/Day Years Used Date Smoking Tobacco: Never Assessed Comments Unknown Sex and Gender Information Value Date Recorded Sex Assigned at Not on file Legal Sex Female 5:18 AM 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
--- OUTSIDE RECORDS SUMMARY | 2024-10-18 15:25 | XMS_ITS | Encounter Summary ---
Author Organization [facility] Address [address] [place] [address] Care Team Providers Care Sole Polisher Name Role Phone Chiquita Rome MD Primary Care Provider [phone] Encounter Details Date Type Department Care Team (Latest Contact Info) Description 01/04/2004 Outpatient Historical HIS IM[facility]LAB [facility] Chavez Ayala MD [address] [place] [phone] SCREENING MAMM-MAILG NEOPL-OTHER (Primary Dx) Social History Tobacco Use Types Packs/Day Years Used Date Smoking Tobacco: Never Assessed Comments Unknown Sex and Gender Information Value Date Recorded Sex Assigned at Not on file 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
--- OUTSIDE RECORDS SUMMARY | 2024-10-18 15:25 | XMS_ITS | Encounter Summary ---
Author Organization [facility] Address [address] [place] [address] Care Team Providers Care Forging Engineer Name Role Phone Chiquita Rome MD Primary Care Provider [phone] Encounter Details Date Type Department Care Team (Late st Contact Info) Description 05/08/1999 Outpatient Historical HIS G 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
--- OUTSIDE RECORDS SUMMARY | 2024-10-18 15:25 | XMS_ITS | Encounter Summary ---
Author Organization [facility] Address 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
--- OUTSIDE RECORDS SUMMARY | 2024-10-18 15:25 | XMS_ITS | Encounter Summary ---
Author Organization [facility] Address [address] [place] [address] Care Team Providers Care Boardmarker Name Role Phone Chiquita Rome MD Primary Care Provider [phone] Encounter Details Date Type Department Care Team (Late st Contact Info) Description 07/02/2006 Outpatient Historical [facility] CASH CROP FARMER - [address] [place] [address] Chavez Ayala MD [address] [place] [address] [place] [phone] Social History Tobacco Use Types Packs/Day Years Used Date Smoking Tobacco: Never Assessed Comments Unknown Sex and Gender Information Value Date Recorded Sex Assigned at Not on file Legal Sex Female 5:18 AM SYRUP BLENDER Gender Identity Not on file Sexual Orientation Not on file documented as of this encounter Plan of Treatment Not on file documented as of this encounter Visit Diagnoses Not on filedocumented in this encounter Care Teams Boardmarker Relationship Specialty Start Date End Date Chiquita Rome MD PCP - General Family Practice 06/19/10 documented as of this encounter
--- OUTSIDE RECORDS SUMMARY | 2024-10-18 15:25 | XMS_ITS | Encounter Summary ---
Author Organization [facility] Address 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
--- OUTSIDE RECORDS SUMMARY | 2024-10-18 15:25 | XMS_ITS | Encounter Summary ---
Author Organization [facility] Address 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
--- OUTSIDE RECORDS SUMMARY | 2024-10-18 15:25 | XMS_ITS | Encounter Summary ---
Author Organization [facility] Address 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
--- OUTSIDE RECORDS SUMMARY | 2024-10-18 15:25 | XMS_ITS | Encounter Summary ---
Author Organization [facility] Address 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 - [address] [place] [phone] Chavez Ayala MD [address] [place] [address] [place] [phone] Social History Tobacco Use Types Packs/Day Years Used Date Smoking Tobacco: Never Assessed Comments Unknown Sex and Gender Information Value Date Recorded Sex Assigned at Not on file 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
--- OUTSIDE RECORDS SUMMARY | 2024-10-18 15:25 | XMS_ITS | Encounter Summary ---
Author Organization [facility] Address 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
--- OUTSIDE RECORDS SUMMARY | 2024-10-18 15:25 | XMS_ITS | Encounter Summary ---
Author Organization [facility] Address [address] [place] [address] Care Team Providers Care Linen Room Supervisor Name Role Phone Chiquita Rome MD Primary Care Provider [phone] Encounter Details Date Type Department Care Team (Late st Contact Info) Description 06/04/2004 Outpatient Historical [facility] Support [facility] ([facility]) [address] 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
--- OUTSIDE RECORDS SUMMARY | 2024-10-18 15:25 | XMS_ITS | Clinical Summary ---
Author Organization [facility] Address [address] [place] [address] Care Team Providers Care Yeast Cake Cutter Name Role Phone Chiquita Rome MD Primary Care Provider Allergies No known active allergies Medications loratadine (CLARITIN) 10 mg Oral tablet Take 1 Tab by mouth daily. Active fluticasone (FLONASE) 50 mcg/spray [place], Suspension Administer 2 Sprays in each nostril daily. 48 Gram 2 5 Active Active Problems Patient Care Coordination No te Formatting of this note migh t be different from the original. 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 Maximilian Yo ([facility]) Problem Noted Date Diagnosed Date Allergic rhinitis due to allergen 07/20/2014 Hiatal hernia 04/26/2013 Gastric polyp 04/26/2013 Internal hemorrhoid 04/26/2013 Rectal polyp 04/26/2013 Hyperplastic colon polyp 04/26/2013 Chronic sinusitis 07/11/2010 Well woman exam with routine gynecological exam 12/20/2009 Menorrhagia 08/01/2008 Immunizations Immunization Administration Dates Next Due (ADACEL/BOOSTRIX)(10 YR UP) TDAP VACCINE, 0.5ML, IM 07/11/2010 INFLUENZA VACCINE QUADRIVALE NT 3 YR UP PF IM 01/13/2019,12/22/2017 Influenza Seasonal Unspecifi ed Formulation IM 01/01/2020,11/29/2017,01/16/2015,2013 Influenza Vaccine Split 3+ Yrs IM 01/08/2014 Influenza Vaccine Split 3+ Yrs PF IM 01/16/2015, 03/17/2013 Family History Medical History Relation Name Comments Healthy Brother Alzheimer's Disease Father Dementia Father Hypertension Father Stroke Maternal Grandfather Healthy Maternal Grandmother cancer Breast Cancer Mother Heart Attack Mother Thyroid Disease Mother COPD Paternal Grandfather Dementia Paternal Grandmother Healthy Son Cancer Neg Hx Colon Cancer Neg Hx Ovarian Cancer Neg Hx Relation Name Status Comments Brother Alive Father Alive Maternal Grandfather Maternal Grandmother Mother Alive Paternal Grandfather Paternal Grandmother Son Alive Social History Tobacco Use Types Packs/Day Years Used Date Smoking Tobacco: Never Smokeless Tobacco: Never Comments:smoked for only 2 y ears has quit now for over 36yrs Alcohol Use Standard Drinks/Week Comments Yes 0 (1 standard drink = 0.6 oz pure alcohol) 2 x week several drinks on weekends Comments No Sex and Gender Information Value Date Recorded Sex Assigned at Not on file 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 Gender Identity Not on file Sexual Orientation Not on file Occupation Industry Job Start Date Job End Date Not on file Not on file Not on file Not on file Last Filed Vital Signs Vital Sign Reading Time Taken Comments Blood Pressure 152/90 11/28/2018 1:15 PM CDT Pulse 81 11/28/2018 1:15 PM CDT Temperature 37 C (98.6 F) 07/27/2018 1:38 PM CDT Respiratory Rate 19 07/27/2018 1:38 PM CDT Oxygen Saturation 98% 07/27/2018 1:38 PM CDT Inhaled Oxygen Concentration - - Weight 74.4 kg (164 lb) 11/28/2018 1:15 PM CDT Height 170.2 cm (5' 7) 11/28/2018 1:15 PM CDT Body Mass Index 25.69 11/28/2018 1:15 PM CDT Plan of Treatment Health Maintenance Due Date Last Done Comments FIT-DNA Q 3 years 07/26/2007 FIT/FOBT Q 1 year 07/26/2007 05/23/2004 Flex Sig/CT Colonography Q 5 years 07/26/2007 ZOSTER VACCINE (1 of 2) 2012 DTAP/TDAP/TD VACCINES (2 - T d or Tdap) 07/11/2020 07/11/2010 PAP SMEAR 11/28/2021 11/28/2018, 04/05/2014, 10/26/2012, Additional history exists COLORECTAL SCREENING 04/18/2023 04/18/2013, 02/18/20 14 Colorectal Cancer Screening 04/18/2023 CERVICAL CANCER SCREENING 11/29/2023 HPV/Cotest (21-29) 11/29/2023 11/28/2018, 0 06/22/2014, 10/26/2012, Additional history exists HPV/Cotest (30-65) 11/29/2023 11/28/2018, 0 06/22/2014, 10/26/2012, Additional history exists BREAST CANCER SCREENING 04/20/2024 04/20/19, 01/08/2022, 12/17/2020, Additional history exists INFLUENZA VACCINE (#1) 2024 , 01/01/2020, 01/13/2019, Additional history exists RSV VACCINE (60+ or ) (1 - 1-dose 75+ series) 2037 Procedures Procedure Name Priority Date/Time Associated Diagnosis Comments MAMMO 3D PRASANTH SCREEN BILAT W OR WO CAD Routine 04/20/2023 11:47 AM COMPOUND SPECIALIST Visit for screening mammogram CERV/VAG CYTO AGE BASED SCREEN PAP Routine 11/28/2018 2:48 PM CDT Well woman exam with routine gynecological exam from Last 3 Months or Most Recently Relevant to Health Maintenance Results * MAMMO 3D PRASANTH SCREEN BILAT W OR WO CAD (04/20/2023 11:47 AM COMPOUND SPECIALIST) Anatomical Region Laterality Modality Breast Bilateral Mammography 04/20/2023 11:4 7 AM COMPOUND SPECIALIST Impressions 04/21/2023 1:52 PM COMPOUND SPECIALIST IMPRESSION: Negative bilateral screening mammogram. Recommend routine followup. OVERALL FINAL ASSESSMENT: BI-RADS CATEGORY 1: Negative DICTATION LOCATION: [facility] Narrative 04/21/2023 1:52 PM COMPOUND SPECIALIST BILATERAL SCREENING DIGITAL MAMMOGRAM WITH 3D TOMOSYNTHESIS AND CAD DATE: 04/20/2023 11:47 AM HISTORY: Annual screening study. COMPARISON: 01/08/2022 - 06/09/2017 TECHNIQUE: A bilateral screening mammogram was performed. Low-dose full-field digital breast tomosynthesis examination was performed with 2D and 3D acquisitions. Examination is read in conjunction with computer aided detection. BREAST COMPOSITION: The breasts are heterogeneously dense, which may obscure small masses. FINDINGS: No new masses, suspicious calcifications, or areas of asymmetry or distortion are identified. The images were reviewed using the CAD system. Procedure Note Mily Vela MD - 04/21/2023 BILATERAL SCREENING DIGITAL MAMMOGRAM WITH 3D TOMOSYNTHESIS AND CAD DATE: 04/20/2023 11:47 AM HISTORY: Annual screening study. COMPARISON: 01/08/2022 - 06/09/2017 TECHNIQUE: A bilateral screening mammogram was performed. Low-dose full-field digital breast tomosynthesis examination was performed with 2D and 3D acquisitions. Examination is read in conjunction with computer aided detection. BREAST COMPOSITION: The breasts are heterogeneously dense, which may obscure small masses. FINDINGS: No new masses, suspicious calcifications, or areas of asymmetry or distortion are identified. The images were reviewed using the CAD system. IMPRESSION: Negative bilateral screening mammogram. Recommend routine followup. OVERALL FINAL ASSESSMENT: BI-RADS CATEGORY 1: Negative DICTATION LOCATION: [facility] Chavez Ayala MD MAMMO ORDERABLES Final Result * CERV/VAG CYTO AGE BASED SCREEN PAP (11/28/2018 2:48 PM CDT) COMMENT (PAP): SEE COMMENT 10:06 AM CDT [facility] Comment: This order for age-based cervical cancer and STI screening follows ACOG guidelines(PB 168, 140, PVA426). See individual assays for performing site location. CLINICAL INFORMATION Information not provided 12/02/2018 10:06 AM CDT [facility] LAST MENSTRUAL PERIOD INFORMATION NOT PROVIDED 12/02/2018 10:06 AM CDT [facility] PREV PAP: INFORMATION NOT PROVIDED 12/02/2018 10:06 AM CDT [facility] PREV BX: INFORMATION NOT PROVIDED 12/02/2018 10:06 AM CDT [facility] SOURCE Endocervix 12/02/2018 10:06 AM CDT [facility] ADEQUACY: SATISFACTORY FOR EVALUATION 12/02/2018 10:06 AM CDT [facility] PAP INTERP SEE COMMENT 12/02/2018 10:06 AM CDT [facility] Comment: Negative for intraepithelial lesion or malignancy. Atrophic pattern; predominantly parabasal cells COMMENT This Pap test has been evaluated with computer assisted technology. 12/02/2018 10:06 AM CDT [facility] WAREHOUSE OPERATOR: SEE COMMENT 2018 10:06 AM CDT [facility] Comment: DDS, CT(ASCP) CT screening location: [place] [address] [address] [place] [address] EXPLANATORY NOTE SEE COMMENT 019 10:06 AM CDT [facility] Comment: EXPLANATORY NOTE: The Pap is a screening test for cervical cancer. It is not a diagnostic test and is subject to false negative and false positive results. It is most reliable when a satisfactory sample, regularly obtained, is submitted with relevant clinical findings and history, and when the Pap result is evaluated along with historic and current clinical information. HPV E6/E7 Not Detected Not Detected 12/02/2018 10:06 AM CDT [facility] Comment: This test was performed using the APTIMA HPV Assay ([employer] This assay detects E6/E7 viral messenger RNA (mRNA) from 14 high-risk HPV types (16,18,31,33,35,39,45,51,52,56,58,59,66,68). The analytical performance characteristics of this assay have been determined by [facility]. The modifications have not been cleared or approved by the FDA. This assay has been validated pursuant to the CLIA regulations and is used for clinical purposes. Genital SWAB OF ENDOCERVIX / Unknown Collection / Unknown 11/28/2018 2:48 PM CDT 11/28/2018 8:14 PM CDT Narrative [facility] - 12/02/2018 10:06 AM CDT Performing Organization Information: Site ID: [id number] [facility] Address: [address] [place] [address] Director: Nicholas Wiggins D.O., MPH Site ID: [id number] [facility] Address[facility] [address] [address] [place] [address] Director: Sami Aguila Rosie Carvalho NP PATHOLOGY/CYTOLOGY ORDERABLES Fi nal Result [facility] [phone] from Last 3 Months or Most Recently Relevant to Health Maintenance Insurance RX [employer] Medicare Part B Advance Directives For more information, please contact: [phone] Documents on File Type Date Recorded Patient It Administrator Expl anation Advance Directive Living Will 08/14/2013 9:59 AM Advance Directive Living Will * Full Code (Latest Code Status on File) Date Activated Date Inactivated Comments 04/18/2013 6:25 AM 04/18/2013 10:18 AM Care Teams Yeast Cake Cutter Relationship Specialty Start Date End Date Chiquita Rome MD PCP - General Family Practice 06/19/10
== END 2024-10-18 14:49 | disposition home or self-care (01) ==
LOC: ANHFOHIMG 14:53
PROVIDERS: PCP Family Medicine; Visit Provider Obstetrics & Gynecology
DX: Z12.31 Encounter for screening mammogram for malignant neoplasm of breast (principal)
CPT/HCPCS: 77063; 77067